=== PATIENT | male | born 1960 | race Caucasian/White ===

== ENCOUNTER 2021-01-23 03:32 | Emergency (ER) | payer BC ==
[2021-01-23] MEDS ORDERED: Ondansetron 4 MG/2 ML SDV IVPUSH ONE (03:56)
[2021-01-23] MEDS ORDERED: Sodium Chloride 0.9% 1,000 ML IV SCH (04:00)
--- NOTE | 2021-01-23 04:30 | EDM.PDOC ---
ED HPI GENERAL MEDICAL PROBLEM - General Chief Complaint: Gastrointestinal Problem Stated Complaint: VOMITING/ACID Time Seen by Provider: 01/23/21 04:27 Source of Information: Reports: Patient History Limitations: Reports: No Limitations - History of Present Illness INITIAL COMMENTS - FREE TEXT/NARRATIVE: Vitor complains of intractable vomiting that started around midnight. Ass ociated with lower abdominal pain.No aggravating or relieving factors. He does not endorse any diarrhea. He has ah/o DM2,and has had cholecystectomy. Bilateral Lower Abdomen Pain Score (Numeric/FACES): 5 - Related Data Allergies Allergy/AdvReac Type Severity Reaction Status Date / Time No Known Allergies Allergy Verified 01/23/21 04:17 Home Meds: Home Meds Aspirin 81 mg PO DAILY 01/23/21 [History] Calcium Carbonate [Calcium] 600 mg PO BID 01/23/21 [History] Cholecalciferol (Vitamin D3) [Vitamin D] 1 tab PO DAILY 01/23/21 [History] Escitalopram Oxalate 20 mg PO DAILY 01/23/21 [History] Gabapentin [Neurontin] 100 mg PO DAILY 01/23/21 [History] Losartan Potassium 50 mg PO DAILY 01/23/21 [History] Multivitamin 1 tab PO DAILY 01/23/21 [History] Naproxen Sodium [Aleve] 220 mg PO BID PRN 01/23/21 [History] Omeprazole Magnesium [Prilosec Otc] 20 mg PO DAILY 01/23/21 [History] Oxymetazoline [Afrin Original 0.05% Nasal [place]] 1 spray NASBOTH DAILY PRN 01/23/21 [History] Simvastatin 20 mg PO DAILY 01/23/21 [History] SitaGLIPtin [Januvia] 25 mg PO DAILY 01/23/21 [History] metFORMIN [Glucophage] 1,000 mg PO BID 01/23/21 [History] Past Medical History Cardiovascular History: Reports: High Cholesterol, Hypertension Gastrointestinal History: Reports: GERD Neurological History: Reports: Neuropathy, Diabetic Endocrine/Metabolic History: Reports: Diabetes, Type II - Past Surgical History GI Surgical History: Reports: Cholecystectomy, Colonoscopy Social & Family History - Tobacco Use Tobacco Use Status *Q: Never Tobacco User - Caffeine Use Caffeine Use: Reports: Coffee, Soda - Recreational Drug Use Recreational Drug Use: No ED ROS GENERAL - Review of Systems Review Of Systems: Comprehensive ROS is negative, except as noted in HPI. ED EXAM, GI/ABD - Physical Exam Exam: See Below Exam Limited By: No Limitations General Appearance: Alert, WD/WN, No Apparent Distress Head: Atraumatic Neck: Normal Inspection Respiratory/Chest: No Respiratory Distress, Lungs Clear Cardiovascular: Normal Peripheral Pulses GI/Abdominal Exam: Normal Bowel Sounds, Soft, Tender. No: Distended, Guarding, Hepatomegaly Course - Vital Signs Last Recorded V/S: Last Vital Signs Temp 97.2 F 01/23/21 03:40 Pulse 83 01/23/21 03:40 Resp 18 01/23/21 03:40 BP 116/68 01/23/21 03:40 Pulse Ox 93 L 01/23/21 03:40 - Orders/Labs/Meds Orders: Active Orders 24 hr Category Date Time Status Accu Check [Blood Glucose Check, Bedside] [RC] ONETIME Care 01/23/21 03:56 Active Abdomen Pelvis w Cont [CT] Stat Exams 01/23/21 04:38 Taken Sodium Chloride 0.9% [Normal Saline] 1,000 ml Med 01/23/21 04:00 Active IV ASDIRECTED Medication Orders Sodium Chloride (Normal Saline) 1,000 mls @ 999 mls/hr IV ASDIRECTED OLEG Last Admin: 01/23/21 04:08 Dose: 999 mls/hr Documented by: CRESENCIO Labs: Laboratory Tests 01/23/21 01/23/21 01/23/21 Range/Units 03:45 04:00 04:05 WBC 10.8 H (3.2-10.1) x10-3/uL RBC 4.79 (3.90-5.90) x10(6)uL Hgb 15.1 (12.9-17.7) g/dL Hct 43.5 (38.3-50.1) % MCV 90.8 (80.8-98.7) fL MCH 31.5 (27.0-33.3) pg MCHC 34.7 (28.7-35.3) g/dL RDW 13.0 (12.4-15.0) % Plt Count 202 (117-477) x10(3)uL MPV 8.1 (6.7-11.0) fL Neutrophils % (Manual) 88 H (46-82) % Band Neutrophils % 3 (0-6) % Lymphocytes % (Manual) 1 L (13-37) % Monocytes % (Manual) 8 (4-12) % Sodium (135-145) mmol/L Potassium (3.5-5.3) mmol/L Chloride (100-110) mmol/L Carbon Dioxide (21-32) mmol/L BUN (7-18) mg/dL Creatinine (0.70-1.30) mg/dL Est Cr Clr Drug Dosing Estimated GFR (MDRD) (>60) BUN/Creatinine Ratio (9-20) Glucose (80-116) mg/dL POC Glucose 250 H (80-116) mg/dL Calcium (8.6-10.2) mg/dL Total Bilirubin (0.1-1.3) mg/dL AST (5-25) IU/L ALT (12-36) U/L Alkaline Phosphatase (56-112) IU/L Total Protein (6.0-8.0) g/dL Albumin (3.2-4.6) g/dL Globulin g/dL Albumin/Globulin Ratio Urine Color Yellow (YELLOW) Urine Appearance Clear (CLEAR) Urine pH 5.0 (5.0-6.5) Ur Specific [place] 1.030 H (1.010-1.025) Urine Protein 30 H (NEGATIVE) mg/dL Urine Glucose (UA) 50 H (NORMAL) mg/dL Urine Ketones 15 H (NEGATIVE) mg/dL Urine Occult Blood Negative (NEGATIVE) Urine Nitrite Negative (NEGATIVE) Urine Bilirubin Negative (NEGATIVE) Urine Urobilinogen Normal (NEGATIVE) mg/dL Ur Leukocyte Esterase Negative (NEGATIVE) Urine RBC 0-5 (0-5) Urine WBC 0-5 (0-5) Ur Squamous Epith Cells Occasional (NS,R,O) Urine Bacteria Rare H (NS) 01/23/21 Range/Units 04:05 WBC (3.2-10.1) x10-3/uL RBC (3.90-5.90) x10(6)uL Hgb (12.9-17.7) g/dL Hct (38.3-50.1) % MCV (80.8-98.7) fL MCH (27.0-33.3) pg MCHC (28.7-35.3) g/dL RDW (12.4-15.0) % Plt Count (117-477) x10(3)uL MPV (6.7-11.0) fL Neutrophils % (Manual) (46-82) % Band Neutrophils % (0-6) % Lymphocytes % (Manual) (13-37) % Monocytes % (Manual) (4-12) % Sodium 140 (135-145) mmol/L Potassium 4.4 (3.5-5.3) mmol/L Chloride 101 (100-110) mmol/L Carbon Dioxide 25 (21-32) mmol/L BUN 25 H (7-18) mg/dL Creatinine 1.0 (0.70-1.30) mg/dL Est Cr Clr Drug Dosing TNP Estimated GFR (MDRD) > 60 (>60) BUN/Creatinine Ratio 25.0 H (9-20) Glucose 267 H (80-116) mg/dL POC Glucose (80-116) mg/dL Calcium 8.6 (8.6-10.2) mg/dL Total Bilirubin 1.3 (0.1-1.3) mg/dL AST 37 H (5-25) IU/L ALT 67 H (12-36) U/L Alkaline Phosphatase 53 L (56-112) IU/L Total Protein 7.8 (6.0-8.0) g/dL Albumin 4.1 (3.2-4.6) g/dL Globulin 3.7 g/dL Albumin/Globulin Ratio 1.1 Urine Color (YELLOW) Urine Appearance (CLEAR) Urine pH (5.0-6.5) Ur Specific [place] (1.010-1.025) Urine Protein (NEGATIVE) mg/dL Urine Glucose (UA) (NORMAL) mg/dL Urine Ketones (NEGATIVE) mg/dL Urine Occult Blood (NEGATIVE) Urine Nitrite (NEGATIVE) Urine Bilirubin (NEGATIVE) Urine Urobilinogen (NEGATIVE) mg/dL Ur Leukocyte Esterase (NEGATIVE) Urine RBC (0-5) Urine WBC (0-5) Ur Squamous Epith Cells (NS,R,O) Urine Bacteria (NS) Meds: Medications Generic Name Dose Route Start Last Admin Trade Name Freq PRN Reason Stop Dose Admin Sodium Chloride 1,000 mls @ 999 mls/hr 01/23/21 04:00 01/23/21 04:08 Normal Saline IV 999 mls/hr ASDIRECTED OLEG Administration Discontinued Medications Generic Name Dose Route Start Last Admin Trade Name Freq PRN Reason Stop Dose Admin Iopamidol 100 ml 01/23/21 04:50 01/23/21 05:04 Iopamidol 755 Mg/Ml 100 Ml Bottle IV 01/23/21 04:51 100 ml . DIRECTED ONE Administration Ondansetron HCl 4 mg 01/23/21 03:56 01/23/21 04:08 Ondansetron 4 Mg/2 Ml Sdv IVPUSH 01/23/21 03:57 4 mg ONETIME ONE Administration Departure - Departure Time of Disposition: 06:32 Disposition: Home, Self-Care 01 Condition: Good Clinical Impression: Vomiting Qualifiers: Vomiting type: unspecified Nausea presence: with nausea - Discharge Information Referrals: PCP,Not In Area [Primary Care Provider] - Forms: ED Department Discharge Sepsis Event Note (ED) - Evaluation Sepsis Screening Result: No Definite Risk - Focused Exam Vital Signs: Vital Signs Temp Pulse Resp BP Pulse Ox 01/23/21 03:40 97.2 F 83 18 116/68 93 L - Problem List & Annotations (1) Vomiting SNOMED Code(s): 019624543 Code(s): R11.10 - VOMITING, UNSPECIFIED Status: Acute Current Visit: Yes Qualifiers: Vomiting type: unspecified Nausea presence: with nausea - Problem List Review Problem List Initiated/Reviewed/Updated: Yes - My Orders Last 24 Hours: My Active Orders 01/23/21 03:56 Accu Check [Blood Glucose Check, Bedside] [RC] ONETIME 01/23/21 04:00 Sodium Chloride 0.9% [Normal Saline] 1,000 ml IV ASDIRECTED 01/23/21 04:38 Abdomen Pelvis w Cont [CT] Stat - Assessment/Plan Last 24 Hours: My Active Orders 01/23/21 03:56 Accu Check [Blood Glucose Check, Bedside] [RC] ONETIME 01/23/21 04:00 Sodium Chloride 0.9% [Normal Saline] 1,000 ml IV ASDIRECTED 01/23/21 04:38 Abdomen Pelvis w Cont [CT] Stat Plan: I did a CT that was Negative. I give him 1 L of NS and 8 mg of IV Zofran. He feels better. Will DC home.
[2021-01-23] MEDS ORDERED: Iopamidol 755 Mg/ML 100 ML Bottle IV ONE (04:50)
== END 2021-01-23 06:49 | disposition home or self-care (01) ==
LOC: FB.ED 03:32
DX: R11.2 Nausea with vomiting, unspecified (principal); E78.00 Pure hypercholesterolemia, unspecified; I10 Essential (primary) hypertension; K21.9 Gastro-esophageal reflux disease without esophagitis; E11.40 Type 2 diabetes mellitus with diabetic neuropathy, unspecified; Z90.49 Acquired absence of other specified parts of digestive tract; Z79.84 Long term (current) use of oral hypoglycemic drugs; Z79.82 Long term (current) use of aspirin; Z79.899 Other long term (current) drug therapy
CPT/HCPCS: 36415; 74177; 80053; 81001; 82947; 85025; 96374; 99284; J2405; J7030; Q9967